=== PATIENT | male | born 1950 | race Caucasian/White ===

== ENCOUNTER 2024-04-24 00:27 | Inpatient (IN) | payer MEDICARE, OTHER ==
[2024-04-24] VITALS (11 sets, daily range): BP systolic 96–137; BP diastolic 51–71; PULSE 75–92; TEMP 98.3–99.1
[~2024-04-24] VITALS: Ht 177.8 cm; Wt 77.8 kg
[2024-04-24] MEDS ORDERED: PRINIVIL20 MG PO (00:39)
[2024-04-24] MEDS ORDERED: NS 1,000 ML IV ONE ×2 (00:45→02:00)
[2024-04-24] MEDS ORDERED: Ondansetron 4 MG/2 ML VIAL IV ONE (00:45)
[2024-04-24 01:01] LABS: MEAN CELL VOLUME 86 fl (80.0-100.0); MEAN CORPUSCULAR HEMOGLOBIN 29 pg (27-31); MEAN CORPUSCULAR HGB CONC 34 g/dl (33.0-37.0); MEAN PLATELET VOLUME 9.2 fl (7.4-10.4); PLATELET COUNT 301 K/mm3 (130-400); RED BLOOD COUNT 4.17 M/mm3 (4.20-5.60)
[2024-04-24] MEDS ORDERED: LR 1,000 ML IV ONE ×2 (01:06→02:15)
[2024-04-24 01:07] LABS: HEMATOCRIT 35.7 % (42.0-52.0)
[2024-04-24 01:17] LABS: ALANINE AMINOTRANSFERASE 19 U/L (0-55); ALBUMIN 4.3 g/dL (3.4-4.8); ALKALINE PHOSPHATASE 51 U/L (40-150); ANION GAP 12 mmol/L (7-16); AST,SGOT 19 U/L (5-34); BILIRUBIN,TOTAL 0.5 mg/dL (0.2-1.2); BLOOD UREA NITROGEN 28 mg/dL (8-26); CALCIUM 9.3 mg/dL (8.4-10.2); CHLORIDE 100 mEq/L (98-107); CREATININE, serum 1.29 mg/dL (0.72-1.25); GLUCOSE 183 mg/dL (70-99); POTASSIUM 3.5 mEq/L (3.5-4.5); SODIUM 136 mEq/L (136-145); TOTAL PROTEIN 7.5 g/dl (6.2-8.1)
[2024-04-24 01:23] LABS: TROPONIN-I < 0.010 ng/mL (0.00-0.033)
[2024-04-24 01:53] LABS: BAND 6 % (0-10); LYMPHOCYTE 9 % (20.0-51.0); NEUTROPHILS 73 % (42.0-75.2); PLATELET ESTIMATE NORMAL (NORMAL)
[2024-04-24 02:05] LABS: PH 6.5 (5.0-8.5); URINE APPEARANCE CLEAR (CLEAR/HAZY); URINE BLOOD NEGATIVE (NEGATIVE); URINE COLOR YELLOW (YELLOW); URINE GLUCOSE NEGATIVE (NEGATIVE); URINE KETONE NEGATIVE (NEGATIVE); URINE NITRATE NEGATIVE (NEGATIVE); URINE PROTEIN(semi-quant) 1+ (NEGATIVE); URINE UROBILINOGEN 0.2 E.U/dL (0.2-1.0)
[2024-04-24 02:21] LABS: URINE WBC 0-2 /hpf (0-2)
[2024-04-24 02:22] LABS: MUCOUS PRESENT (NOT PRESENT); URINE BACTERIA NONE SEEN /hpf (NONE SEEN)
[2024-04-24 02:32] LABS: COLLECTION METHOD CLEAN CATCH
[2024-04-24] MEDS ORDERED: Iohexol 300 - 100 ML VIAL IV ONE (02:39)
[2024-04-24] MEDS ORDERED: NS 50 ML IV SCH (02:40)
[2024-04-24] MEDS ORDERED: NORVASC 10MG10 MG PO (03:41)
[2024-04-24] MEDS ORDERED: HYGROTON 2525 MG/TAB PO (03:41)
[2024-04-24] MEDS ORDERED: SAW PALMETTO S450 MG PO (03:42)
[2024-04-24] MEDS ORDERED: NS 1,000 ML IV SCH (03:45)
[2024-04-24] MEDS ORDERED: Acetaminophen 325 MG TAB PO PRN (03:45)
[2024-04-24] MEDS ORDERED: Ondansetron 4 MG/2 ML VIAL IV PRN (03:45)
[2024-04-24] MEDS ORDERED: metroNIDAZOLE 100 ML IV SCH (04:00)
[2024-04-24] MEDS ORDERED: cefTRIAXone 1 G in Water For Injection,Sterile 10 ML IV SCH (04:00)
[2024-04-24] MEDS ORDERED: *Potassium Replacement Protocol MC SCH (05:30)
[2024-04-24] MEDS ORDERED: Potassium Chloride 100 ML IV SCH (05:30)
--- NOTE | 2024-04-24 05:41 | NUR ---
Patient arrived to the floor per cart from the ED, A/Ox4, admission assessment and intake done, medrec reviewed, assisted to the bathroom with SBA and he voided, hospital policies orientated, with IV to LAC infusing well, denies further needs, call light and personal items within reach, fall precautions in place, will continue to monitor.
--- NOTE | 2024-04-24 08:48 | NUR ---
Patient resting in bed, alert and oriented x 4, reports some headache. Getting fluids per orders and K replacement. Wondering when he can eat. Assessment completed, meds given. Telemetry in place. No other needs at this time. Call light within reach.
[2024-04-24] MEDS ORDERED: Pantoprazole 40 MG in NS 10 ML IV SCH (09:00)
[2024-04-24] MEDS ORDERED: Magnesium Sulfate 4% 50 ML IV ONE (09:45)
--- NOTE | 2024-04-24 09:46 | NUR ---
Data: Spiritual Care visit offered during Shafting Worker rounds. Patient declined. Assessment: None. Patient declined. Plan of Care: Chaplains will remain available if requested while Patient is admitted to this hospital.
--- NOTE | 2024-04-24 13:45 | NUR ---
SW met with patient to complete initial assessment for discharge planning. Patient verified that he lives in [place] at [facility] with his Donna ([phone]). Patient lists his sister Niki ([phone]) as contact. Patient sees Dr. Bahena as his PCP and uses [facility] or [facility] for maintenance medications. Severino denies having any DME and states he walks 2.5 miles daily. Patient states he has a living will and is in process of completing a DPOA. Patient plans to return home to [facility] at discharge. Clinical information sent via secure email to [facility]. Discharge plan: Return home to [facility]
[2024-04-24 14:51] LABS: CLOSTRIDIUM DIFF A/B NEG
--- NOTE | 2024-04-24 22:10 | NUR ---
Patient requested for tylenol, tylenol given, assessed at this time, see shift assessment, A/Ox4, still with IV infusing well on left antecubital, denies further needs, call light and personal items within reach, will continue to monitor.
--- NOTE | 2024-04-24 23:01 | NUR ---
Spoken to Lizzie, the BULKING MACHINE OPERATOR and made her aware that patient is requesting if it's possible to decrease the rate for his IV, received an order to change the rate to 75cc/hr.
[2024-04-25] VITALS (8 sets, daily range): BP systolic 122–128; BP diastolic 50–79; PULSE 65–76; TEMP 98.1–98.2
[2024-04-25 06:52] LABS: BASO % 0.2 % (0.0-2.0); EOS # 0.1 K/mm3 (0.0-0.7); EOS % 1.1 % (0.0-4.0); GRAN # 4.4 K/mm3 (1.4-6.5); GRAN % 68.2 % (42.2-75.2); LYMPH # 1.3 K/mm3 (1.2-3.4); LYMPH % 20.1 % (20.0-51.0); MEAN CORPUSCULAR HGB CONC 35 g/dl (33.0-37.0); MONO # 0.7 K/mm3 (0.1-0.6); MONO % 10.1 % (1.7-9.3); PLATELET COUNT 231 K/mm3 (130-400); RED BLOOD COUNT 3.42 M/mm3 (4.20-5.60)
[2024-04-25 07:07] LABS: HEMATOCRIT 28.8 % (42.0-52.0); MEAN CELL VOLUME 84 fl (80.0-100.0); MEAN CORPUSCULAR HEMOGLOBIN 29 pg (27-31)
--- NOTE | 2024-04-25 07:30 | NUR ---
Call placed to Dr. Mckeon to report delta, Hgb from 12 to 10 this morning. No further orders.
[2024-04-25 08:04] LABS: CALCIUM 8.3 mg/dL (8.4-10.2); CREATININE, serum 0.81 mg/dL (0.72-1.25); POTASSIUM 3.7 mEq/L (3.5-4.5)
[2024-04-25] MEDS ORDERED: Potassium Bicarbonate/Citrate 20 MEQ Effervescent TAB PO SCH (08:30)
--- NOTE | 2024-04-25 09:00 | NUR ---
Patient resting in chair, alert and oriented x 4. States he has had some complications ordering his meals and he does not like the bed or chair alarms. States some pain in his neck, tylenol provided. Assessment completed. Meds given. No further needs at this time. Call light within reach. Chair alarm on.
--- NOTE | 2024-04-25 09:20 | NUR ---
Patient provided copy of living will and DPOA for healthcare. Copy placed on chart
[2024-04-25] MEDS ORDERED: Magnesium Oxide 400 MG TAB PO SCH (09:26)
[2024-04-25] MEDS ORDERED: OMNICEF 300MG300 MG PO (13:21)
[2024-04-25] MEDS ORDERED: FLAGYL500 MG PO (13:22)
--- NOTE | 2024-04-25 14:26 | NUR ---
Patient was provided with discharge information, all questions answered. IV access and telemetry were discontinued.
[2024-04-26] MEDS ORDERED: NS 1,000 ML IV SCH
[2024-04-27] MEDS ORDERED: NORCO 325 MG-51 TAB PO (07:12)
== END 2024-04-25 14:34 | disposition home or self-care (01) | DRG 872 ==
LOC: COL.ER 00:27 → EDBD 00:27 → COL.ER 03:39 → SURG 03:39
PROVIDERS: Nurse Practitioner; Nurse Practitioner Family; ADMIT Internal Medicine
DX: A41.9 Sepsis, unspecified organism (principal); C64.2 Malignant neoplasm of left kidney, except renal pelvis; C64.1 Malignant neoplasm of right kidney, except renal pelvis; N17.9 Acute kidney failure, unspecified; I12.0 Hypertensive chronic kidney disease with stage 5 chronic kidney disease or end stage renal disease; E86.0 Dehydration; N18.9 Chronic kidney disease, unspecified; E87.6 Hypokalemia; R73.9 Hyperglycemia, unspecified; D63.1 Anemia in chronic kidney disease
CPT/HCPCS: J0696; J1650; J1836; J2405; J2470; J3475; J3480; J7030; J7120; Q9967

== ENCOUNTER 2024-04-26 10:52 | Inpatient (IN) | payer MEDICARE, OTHER ==
[~2024-04-26] VITALS: Ht 177.8 cm; Wt 81.9 kg
[~2024-04-26 10:52] MED LIST: FLAGYL500 MG PO; HYGROTON 2525 MG/TAB PO; NORVASC 10MG10 MG PO; OMNICEF 300MG300 MG PO; PRINIVIL20 MG PO; SAW PALMETTO S450 MG PO
[2024-04-27] VITALS (13 sets, daily range): BP systolic 116–147; BP diastolic 52–79; PULSE 57–91; TEMP 97.5–98.8
[2024-04-27] MEDS ORDERED: LR 1,000 ML IV SCH ×3 (05:00→10:00)
[2024-04-27] MEDS ORDERED: Celecoxib 200 MG CAP PO SCH (06:30)
[2024-04-27] MEDS ORDERED: Acetaminophen 500 MG TAB PO SCH ×2 (06:30→12:00)
[2024-04-27] MEDS ORDERED: Gabapentin 100 MG CAP PO SCH (06:30)
[2024-04-27] MEDS ORDERED: ZESTRIL 20MG TA20 MG PO (06:36)
[2024-04-27] MEDS ORDERED: Midazolam 2 MG/2 ML VIAL ONE (06:40)
[2024-04-27] MEDS ORDERED: fentaNYL 50 MCG/ML 2 ML VIAL ONE (06:41)
[2024-04-27] MEDS ORDERED: Lidocaine 1% w EPI (1:100,000) 20 ML Multi-Dose VIAL ONE (06:43)
[2024-04-27] MEDS ORDERED: dexAMETHasone 10 MG/ML VIAL ONE (06:44)
[2024-04-27] MEDS ORDERED: Vecuronium 10 MG VIAL IV ONE (06:50)
[2024-04-27] MEDS ORDERED: NORCO 325 MG-51 TAB PO (07:12)
[2024-04-27] MEDS ORDERED: oxyCODONE 5 MG TAB PO PRN ×2 (07:15)
[2024-04-27] MEDS ORDERED: Ondansetron 4 MG/2 ML VIAL IV PRN ×2 (07:15→08:15)
[2024-04-27] MEDS ORDERED: Morphine 4 MG/ML VIAL IV PRN (07:15)
[2024-04-27] MEDS ORDERED: Naloxone 0.4 MG/ML VIAL IV PRN (07:15)
[2024-04-27] MEDS ORDERED: Topical Skin Adhesive 1 EACH (1 ML) TOP ONE ×2 (07:44)
[2024-04-27] MEDS ORDERED: Glycopyrrolate 0.2 MG/ML 1 ML VIAL ONE (07:52)
[2024-04-27] MEDS ORDERED: HYDROmorphone 1 MG/1 ML SYRINGE [PACU/SDC ONLY] IV PRN (08:15)
[2024-04-27] MEDS ORDERED: Meperidine 50 MG/ML 1 ML VIAL IV PRN (08:15)
[2024-04-27] MEDS ORDERED: fentaNYL 50 MCG/ML 1 ML SYRINGE/VIAL [PACU/SDC ONLY] IV PRN (08:15)
[2024-04-27] MEDS ORDERED: droPERidol 2.5 MG/ML 2 ML VIAL IV PRN (08:15)
[2024-04-27] MEDS ORDERED: hydrALAZINE 20 MG/ML 1 ML VIAL IV PRN (08:15)
[2024-04-27] MEDS ORDERED: amLODIPine 10 MG TAB PO SCH (09:00)
[2024-04-27] MEDS ORDERED: Chlorthalidone 25 MG TAB PO SCH (09:00)
[2024-04-27] MEDS ORDERED: metroNIDAZOLE 250 MG TAB PO SCH (09:00)
[2024-04-27] MEDS ORDERED: Lisinopril 20 MG TAB PO SCH (09:00)
[2024-04-27] MEDS ORDERED: Cefdinir 300 MG CAP PO SCH (09:00)
[2024-04-27] MEDS ORDERED: LR 1,000 ML IV ONE (09:15)
[2024-04-27] MEDS ORDERED: Ondansetron 4 MG/2 ML VIAL ONE (09:15)
--- NOTE | 2024-04-27 11:20 | NUR ---
PATIENT TO ROOM 346 FOLLOWING HIS SURGERY. VSS. HEAD TO TOE ASSESSMENT COMPLETE. NORMAL HEART SOUNDS 1&2. LUNG SOUNDS CLEAR IN ALL [place]. PULSES READILY PALPABLE IN EXTREMITIES. ABD SITES WELL APPROXIMATED. ABD MIDLINE WELL APPROXIMATED. PATIENT TOLERATING JELLO CUP. NO FURTHER NEEDS. CALL LIGHT WITHIN REACH.
[2024-04-27] MEDS ORDERED: Gabapentin 100 MG CAP PO ONE (13:00)
--- NOTE | 2024-04-27 17:30 | NUR ---
UROLOGY AT BEDSIDE MAKING ROUNDS. PLAN IS FOR R[facility]LEDGE TO BE DC'D TOMORROW AT 0600 AND DISCHARGE TO HOME LATER 04/28.
--- NOTE | 2024-04-27 21:00 | NUR ---
SHIFT ASSESSMENT COMPLETE. VSS. PATIENT RESTING BED. PATIENT STATES PAIN 6/10 PAIN MEDS GIVEN PER ORDERS. ALL NIGHT MEDS GIVEN ORDERED. ADVISED PATIENT THAT HE WILL NEED TO START GETTING UP AND WALKING THE HALLS TO HELP WITH GAS PAINS AND PREPAR FOR DISCHARGE TOMORROW. PATIENT EXPRESSED UNDERSTANDING AND WALKED SEVEREL LAPS WITH MASONRY SUPERVISOR. PATIENT HAS NO OTHER REQUEST AT THIS TIME. CALL LIGHT IN REACH.
[2024-04-28] VITALS (7 sets, daily range): BP systolic 116–152; BP diastolic 62–75; PULSE 65–71; TEMP 97.4–98.8
--- NOTE | 2024-04-28 05:19 | NUR ---
RUTLEDGE CATHETER REMOVED. PATIENT TOLERATED WELL. 50ML URINE IN CATHETER BAG.
[2024-04-28 06:27] LABS: BASO % 0.4 % (0.0-2.0); EOS % 0.2 % (0.0-4.0); GRAN # 5.6 K/mm3 (1.4-6.5); GRAN % 68.2 % (42.2-75.2); LYMPH # 1.5 K/mm3 (1.2-3.4); LYMPH % 18.8 % (20.0-51.0); MEAN CELL VOLUME 88 fl (80.0-100.0); MEAN CORPUSCULAR HGB CONC 34 g/dl (33.0-37.0); MEAN PLATELET VOLUME 9.3 fl (7.4-10.4); MONO % 11.9 % (1.7-9.3); PLATELET COUNT 228 K/mm3 (130-400); RED BLOOD COUNT 3.27 M/mm3 (4.20-5.60); REDCELL DISTRIBUTION WIDTH-CV 13.7 % (11.5-14.5)
[2024-04-28 06:38] LABS: HEMATOCRIT 28.7 % (42.0-52.0); HEMOGLOBIN 9.7 g/dl (13.5-18.0); MEAN CORPUSCULAR HEMOGLOBIN 30 pg (27-31)
[2024-04-28 06:46] LABS: CALCIUM 8.5 mg/dL (8.4-10.2); CREATININE, serum 1.4 mg/dL (0.72-1.25); POTASSIUM 3.8 mEq/L (3.5-4.5)
--- NOTE | 2024-04-28 08:00 | NUR ---
Pt. sitting up in bed. Pt. is A&OX3, assessment complete. INT to rt. hand patent. Pt. reported pain at a 5 on pain scale, will give meds per orders. Abd. incisions well aproximated. Pt. denies further needs, call light within reach.
--- NOTE | 2024-04-28 09:05 | NUR ---
Delivery And Mail Sorter met with patient to discuss discharge planning. Patient lives at [facility] in the [facility] with his , Donna (ph#[phone]). Patient sees Dr. Bahena for primary care and gets his medications either by mail or at [facility] pharmacy. Patient does not use any DME and is independent with [employer], including driving. Patient stated he walks 2 miles daily around campus. Patient has DPOA-HC in EMR designating his , Donna. Patient plans to return to [place] at time of discharge and has no anticipated needs at this time. Discharge Plan; [facility]
--- NOTE | 2024-04-28 12:03 | NUR ---
Pt. reports has urinated 2 times. Pt. denied pain or discomfort with urination.
--- NOTE | 2024-04-28 13:00 | NUR ---
Pt. with discharge orders. Reviewed and gave discharge packet to the pt. INT discontinued from rt. hand. Pt. voices understanding. Pt. dressed and escorted out.
== END 2024-04-28 13:00 | disposition home or self-care (01) | DRG 419 ==
LOC: INPTSU 04-27 05:39 → SURG 04-27 07:30
PROVIDERS: Surgery; ADMIT Urology
PROC: 0FT44ZZ Resection of Gallbladder, Percutaneous Endoscopic Approach (ICD-10-PCS; principal; 2024-04-27 07:30)
PROC: 8E0W4CZ Robotic Assisted Procedure of Trunk Region, Percutaneous Endoscopic Approach (ICD-10-PCS; 2024-04-27 07:30)
DX: K80.10 Calculus of gallbladder with chronic cholecystitis without obstruction (principal)
CPT/HCPCS: A4314; A9284; J0690; J1100; J1170; J2250; J2405; J2704; J3010; J7120